=== PATIENT | male | born 1990 | race Caucasian/White ===

== ENCOUNTER 2024-05-22 13:18 | Inpatient (IN) | payer OTHER, SELFPAY ==
[2024-05-22] VITALS (8 sets, daily range): BP systolic 111–129; BP diastolic 63–93; BMI 17.4
[2024-05-22 11:35] LABS: % Basophils 0.2 % (0-2); % Immature Granulocytes 0.2 % (0-0.5); % Lymphocytes 14.5 % (20.5-51.1); % Monocytes 9.7 % (1.7-9.3); % Neutrophils 75.4 % (42.2-75.2); Absolute Lymphocytes 2.1 10^3/uL (1.2-3.4); Absolute Monocytes 1.4 10^3/uL (0.1-0.6); Absolute Neutrophils 11.1 10^3/uL (1.4-6.5); Hematocrit 50.2 % (39.0-52.0); Hemoglobin 16.5 g/dL (13.0-18.0); Mean Corp Hgb Conc. 32.9 g/dL (33.0-37.0); Mean Corpuscular Hgb 28.6 pg (27.0-31.0); Mean Corpuscular Volume 87.2 fL (80.0-94.0); Mean Platelet Volume 10.3 fL (7.4-10.4); Nucleated Red Blood Cells % 0 % (-); Platelet Count 265 10^3/uL (130-400); Red Blood Cell Count 5.76 10^6/uL (4.70-6.10); Red Cell Dist. Width 13.7 % (11.5-14.5); White Blood Cell Count 14.7 10^3/uL (4.8-10.8)
--- NOTE | 2024-05-22 11:47 | ED.GENMED ---
History of Present Illness
<Maria Barragan PA-C - Last Filed: 05/22/24 19:50>
General
Chief Complaint: Withdrawal Symptoms
Source: patient
Exam Limitations: none
Time Seen by Provider: 05/22/24 11:43
Nursing documentation reviewed up to this point in time: agreed with
History of Present Illness
History of Present Illness:
34-year-old male with past medical history of substance use disorder presents to the emergency department today with concerns of black vomit. Patient present in room with [facility] guards he reports that they found patient to have coffee ground like,
black vomit on his cell floor this morning as well as developed that patient appeared lethargic and had altered mental status. Patient repeatedly falls asleep if not being spoken to and he is somewhat limited in his history. He states that he
started feeling sick yesterday evening at around 5 pm. He states that he is also withdrawing from heroin and states that he last used heroin yesterday. He denies chest pain, shortness of breath. He states that he has transient upper abdominal pain.
He denies diarrhea, rectal bleeding, hematochezia, alcohol use disorder, NSAID use.
Review of Systems
<Maria Barragan PA-C - Last Filed: 05/22/24 19:50>
Review of Systems
All Other Systems: ROS reviewed and negative except as documented in HPI and ROS
Phy Exam
<Maria Barragan PA-C - Last Filed: 05/22/24 19:50>
Physical Exam
Physical Exam:
General: Patient is lethargic and minimally responsive
Skin: Warm and dry, no rashes or lesions
Head: Normocephalic, atraumatic
Eyes: Sclera non-icteric. EOMs intact. PERRLA.
Cardiac: Patient tachycardic otherwise regular rhythm, no murmurs
Peripheral Vascular: No lower extremity swelling or edema
Pulm: Normal respiratory effort, no wheezes, rales, or rhonchi
Abdomen: No abdominal tenderness to palpation however patient was guarded
Genitourinary: Heme positive stool
Neuro: CN II-XII intact, no focal neurologic deficits.
Psychiatric: Appropriate mood and affect.
Course
<Maria Barragan PA-C - Last Filed: 05/22/24 19:50>
Orders/Labs/Results
Orders:
Orders
05/22/24 11:14
EKG [Electrocardiogram (*1)] Urgent
Reason for Study: Fatigue / Weakness
EKG- Treatment ONCE
05/22/24 11:20
Type+Screen Urgent
Alcohol Urgent
Complete Blood Count/With Diff Urgent
Comprehensive Metabolic Panel Urgent
Lipase Urgent
05/22/24 11:47
ABO2 Routine
BBK Wristband Number:
Associate notified that ABO2 has been ordered: [id number]
Date: 05/22/24
Time: 11:44
Wheel Inspector ID: [id number]
05/22/24 11:59
Pantoprazole [Protonix IV] 80 mg IV NOW STA
05/22/24 12:55
0.9% Sodium Chloride 1000 ml [Nss] 1,000 ml IV BOLUS
05/22/24 13:05
Admit/Transfer Patient As Directed
Co-Sign Provider:
Level of Care: Inpatient admission
Assign to:: Telemetry
Physician / Group: sabrina
Diagnosis: hematemesis
Reason for Telemetry: Arrhythmia
Date to Stop Telemetry: 05/25/24
Time to Stop Telemetry: 11:00
Reason for Hospitalization: hematemesis
Expected length of stay greater than two midnights?: Yes
ELOS- Estimated Length of Stay in days: 2
I certify the patient meets the requirements for IP care: Yes
05/22/24 13:06
Code Status As Directed
Resuscitation Status: Full Code
PRN Pain Medication Management As Directed
May give lesser potent ordered pain med per pt: Yes
preference::
Protocol:: Medication orders for pain may be administered in a
manner that supports deferring to patient preference
when the pt is:
- Requesting an ordered lesser potent pain medication.
Least to most potent pain medications are defined
as: acetaminophen < NSAID < tramadol < opioids
(morphine, oxycodone, hydromorphone).
- Requesting a lesser dose of the same medication IF
ORDERED.
- Requesting a less intrusive route of administration
if both routes are prescribed by the provider (PO <
IV).
05/22/24 13:11
Urine Drug Abuse Screen Urgent
05/22/24 Dinner
NPO
Allow oral meds: Yes
Allow clear liquids: Sips of Clears
05/22/24 15:28
0.9% Sodium Chloride 1000 ml [Nss] 1,000 ml IV 100 mls/hr
Buprenorphine [Subutex] 8 mg SL PRN PRN
Clonazepam [Klonopin] 0.5 mg PO Q8HPRN PRN
Ondansetron Injectable [Zofran] 4 mg IV Q6HPRN PRN
05/22/24 15:28
Activity As Directed
Activity Level: As Tolerated
Clinical Opioid Withdrawal Scale (COWS) .PRN
Pneumatic Compression Sleeves As Directed
Type: Knee high
Vital Signs As Directed
Frequency: Per unit guidelines
DX Deep Vein Thrombosis Video Routine
05/22/24 18:00
Clonidine [Catapres] 0.1 mg PO Q6
05/22/24 20:00
Pantoprazole [Protonix IV] 40 mg IV BID
05/22/24 22:00
Quetiapine Fumarate [Seroquel] 50 mg PO HS
05/23/24 06:00
Complete Blood Count/With Diff IN AM
Comprehensive Metabolic Panel IN AM
05/23/24 08:00
Buprenorphine [Subutex] 4 mg SL ONCE PRN PRN
Buprenorphine [Subutex] See Dose Instructions SL ONCE ONE
Quetiapine Fumarate [Seroquel] 25 mg PO DAILY
05/24/24 08:00
Buprenorphine [Subutex] See Dose Instructions SL DAILY
05/25/24 11:00
DC Protocol for Telemetry ONCE
Abnormal Lab Results
05/22/24
11:20
WBC 14.7 H 10^3/uL
(4.8-10.8)
MCHC 32.9 L g/dL
(33.0-37.0)
Absolute Neuts (auto) 11.1 H 10^3/uL
(1.4-6.5)
Absolute Monos (auto) 1.4 H 10^3/uL
(0.1-0.6)
Neutrophils % 75.4 H %
(42.2-75.2)
Lymphocytes % 14.5 L %
(20.5-51.1)
Monocytes % 9.7 H %
(1.7-9.3)
Chloride 97 L mmol/L
(98-107)
Carbon Dioxide 33 H mmol/L
(22-30)
BUN 39 H mg/dl
(9-20)
Glucose 118 H mg/dl
(70-99)
05/22/24 11:20
05/22/24 11:20
Vital Signs
Initial and Last Documented VS:
Initial Vital Signs
Temp Pulse Resp BP Pulse Ox
98.5 F 88 20 111/88 98
05/22/24 11:13 05/22/24 11:13 05/22/24 11:13 05/22/24 11:13 05/22/24 11:13
Last Documented Vital Signs
Temp Pulse Resp BP Pulse Ox
97.8 F 89 18 115/80 99
05/22/24 15:40 05/22/24 18:22 05/22/24 18:22 05/22/24 18:22 05/22/24 18:22
<Jayce Edinson Petit, DO - Last Filed: 05/22/24 13:01>
Orders/Labs/Results
Orders:
Orders
05/22/24 11:14
EKG [Electrocardiogram (*1)] Urgent
Reason for Study: Fatigue / Weakness
EKG- Treatment ONCE
05/22/24 11:20
Type+Screen Urgent
Alcohol Urgent
Complete Blood Count/With Diff Urgent
Comprehensive Metabolic Panel Urgent
Lipase Urgent
05/22/24 11:47
ABO2 Routine
BBK Wristband Number:
Associate notified that ABO2 has been ordered: [id number]
Date: 05/22/24
Time: 11:44
Wheel Inspector ID: [id number]
05/22/24 11:59
Pantoprazole [Protonix IV] 80 mg IV NOW STA
05/22/24 12:55
0.9% Sodium Chloride 1000 ml [Nss] 1,000 ml IV BOLUS
05/22/24 13:05
Admit/Transfer Patient As Directed
Co-Sign Provider:
Level of Care: Inpatient admission
Assign to:: Telemetry
Physician / Group: sabrina
Diagnosis: hematemesis
Reason for Telemetry: Arrhythmia
Date to Stop Telemetry: 05/25/24
Time to Stop Telemetry: 11:00
Reason for Hospitalization: hematemesis
Expected length of stay greater than two midnights?: Yes
ELOS- Estimated Length of Stay in days: 2
I certify the patient meets the requirements for IP care: Yes
05/22/24 13:06
Code Status As Directed
Resuscitation Status: Full Code
PRN Pain Medication Management As Directed
May give lesser potent ordered pain med per pt: Yes
preference::
Protocol:: Medication orders for pain may be administered in a
manner that supports deferring to patient preference
when the pt is:
- Requesting an ordered lesser potent pain medication.
Least to most potent pain medications are defined
as: acetaminophen < NSAID < tramadol < opioids
(morphine, oxycodone, hydromorphone).
- Requesting a lesser dose of the same medication IF
ORDERED.
- Requesting a less intrusive route of administration
if both routes are prescribed by the provider (PO <
IV).
05/22/24 13:11
Urine Drug Abuse Screen Urgent
05/22/24 Dinner
NPO
Allow oral meds: Yes
Allow clear liquids: Sips of Clears
05/22/24 15:28
0.9% Sodium Chloride 1000 ml [Nss] 1,000 ml IV 100 mls/hr
Buprenorphine [Subutex] 8 mg SL PRN PRN
Clonazepam [Klonopin] 0.5 mg PO Q8HPRN PRN
Ondansetron Injectable [Zofran] 4 mg IV Q6HPRN PRN
05/22/24 15:28
Activity As Directed
Activity Level: As Tolerated
Clinical Opioid Withdrawal Scale (COWS) .PRN
Pneumatic Compression Sleeves As Directed
Type: Knee high
Vital Signs As Directed
Frequency: Per unit guidelines
DX Deep Vein Thrombosis Video Routine
05/22/24 18:00
Clonidine [Catapres] 0.1 mg PO Q6
05/22/24 20:00
Pantoprazole [Protonix IV] 40 mg IV BID
05/22/24 22:00
Quetiapine Fumarate [Seroquel] 50 mg PO HS
05/23/24 06:00
Complete Blood Count/With Diff IN AM
Comprehensive Metabolic Panel IN AM
05/23/24 08:00
Buprenorphine [Subutex] 4 mg SL ONCE PRN PRN
Buprenorphine [Subutex] See Dose Instructions SL ONCE ONE
Quetiapine Fumarate [Seroquel] 25 mg PO DAILY
05/24/24 08:00
Buprenorphine [Subutex] See Dose Instructions SL DAILY
05/25/24 11:00
DC Protocol for Telemetry ONCE
Abnormal Lab Results
05/22/24
11:20
WBC 14.7 H 10^3/uL
(4.8-10.8)
MCHC 32.9 L g/dL
(33.0-37.0)
Absolute Neuts (auto) 11.1 H 10^3/uL
(1.4-6.5)
Absolute Monos (auto) 1.4 H 10^3/uL
(0.1-0.6)
Neutrophils % 75.4 H %
(42.2-75.2)
Lymphocytes % 14.5 L %
(20.5-51.1)
Monocytes % 9.7 H %
(1.7-9.3)
Chloride 97 L mmol/L
(98-107)
Carbon Dioxide 33 H mmol/L
(22-30)
BUN 39 H mg/dl
(9-20)
Glucose 118 H mg/dl
(70-99)
05/22/24 11:20
05/22/24 11:20
Vital Signs
Initial and Last Documented VS:
Initial Vital Signs
Temp Pulse Resp BP Pulse Ox
98.5 F 88 20 111/88 98
05/22/24 11:13 05/22/24 11:13 05/22/24 11:13 05/22/24 11:13 05/22/24 11:13
Last Documented Vital Signs
Temp Pulse Resp BP Pulse Ox
97.8 F 89 18 115/80 99
05/22/24 15:40 05/22/24 18:22 05/22/24 18:22 05/22/24 18:22 05/22/24 18:22
<Maria Barragan PA-C - Last Filed: 05/22/24 19:50>
MDM/Problems Addressed
Differential Diagnosis Includes:
ddx include upper GI bleed, lower GI bleed, heroin withdrawal, gastoenteritis
MDM/Problems Addressed:
34-year-old male with a past medical history of substance abuse presents to the ER today with coffee ground emesis. No known alcohol use or NSAID use. He was given fluids. Heme positive stool. Concerning for upper GI bleed. Protonix given.
Patient referred for admission.
<Maria Barragan PA-C - Last Filed: 05/22/24 19:50>
*Critical Care Note
Total Time (30-74mins, 75-104mins- exclusive of procedures): Not Applicable
ED Attending Note
<Maria Barragan PA-C - Last Filed: 05/22/24 19:50>
-
Portions of this chart may have been created with voice recognition software.� Occasional wrong word or��sound alike� substitutions may have occurred due to the inherent limitations of voice recognition software.
<Jayce Petit DO - Last Filed: 05/22/24 13:01>
ED Attending Note
Patient seen and examined by attending physician: Yes
I performed the substantive portion of visit, reviewed & personally made and approve the management plan that is documented in note by myself or RENETTA.: Yes
ED Attending Note:
I evaluated the patient at side. The patient appears withdrawn, laying on his side and states that he does not feel well. He reportedly had heme positive stool and had been having black vomitus. His BUN is elevated but otherwise hemodynamically
stable with normal hemoglobin. PPI given.
Discharge Plan
Departure
Patient Disposition: Admit
Date of Disposition: 05/22/24
Time of Disposition: 12:55
Admit to: Med/Surg
Presentation/result/management discussed w/ accepting MD/DO: Hospitalist
Patient with high blood pressure during this ER visit?: No
Condition: Fair
Discharge Problem:
Acute upper GI bleed, Altered mental status
Interventions
Interventions:
*Risk Screen - Suicide Last Done: 05/22/24 11:13
*General Assessment Last Done: 05/22/24 11:13
*Neglect/Abuse Screening Last Done: 05/22/24 11:13
ED- Fall Risk Assessment Last Done: 05/22/24 15:11
*ED COVID-19 Vaccine History Last Done: 05/22/24 11:13
*Nursing Disposition Last Done: 05/22/24 14:54
ED- Neurological Assessment Last Done: 05/22/24 11:28
ED-Psychological Assessment Last Done: 05/22/24 11:31
Discharge Date and Time
Discharge Date/Time: 05/22/24 15:22
[2024-05-22 11:49] LABS: ALT (SGPT) 18 U/L (0-50); AST (SGOT) 26 U/L (17-59); Albumin 4.4 g/dl (3.5-5.0); Alkaline Phosphatase 85 U/L (38-126); Blood Urea Nitrogen 39 mg/dl (9-20); Calcium 9.5 mg/dl (8.4-10.2); Carbon Dioxide 33 mmol/L (22-30); Chloride 97 mmol/L (98-107); Estimated Creatinine Clearance 89 ml/min; Glucose 118 mg/dl (70-99); Lipase 156 U/L (23-300); Potassium 3.8 mmol/L (3.5-5.1); Sodium 139 mmol/L (135-145); Total Bilirubin 0.6 mg/dl (0.2-1.3); Total Protein 7.6 g/dl (6.3-8.2); eGFR > 60.00
[2024-05-22] MEDS: PROTONIX IV 80 MG IV (12:17)
[2024-05-22] MEDS: NSS 1000 IV ×2 (12:57→16:50)
--- NOTE | 2024-05-22 13:11 | HPS.HSE ---
Addendum entered and electronically signed by Stephani Abreu MD 05/22/24 13:14:
NPO for now.
Original Note:
Family Physician
-
Family Physician: Facility [facility]
Chief Complaint
-
hematemesis
History of Present Illness
34-year-old male with drug use disorder presenting with vomiting blood. Patient started throwing up last night and staff noted that he was lethargic and noticed he was covered in coffee-ground emesis. He reportedly came to the present 3 days ago.
He was apparently using 1-2 bundles of heroin per day.
Patient is asleep and is arousable but refusing to provide any history.
Medical History
Past Medical History
Past Medical History: Reports Other
Past Surgical History: Reports None
Social History
Drug: Marijuana, Cocaine and Narcotics
Family History
Family History: Not pertinent
Allergies / Home Medications
Allergies reflects when Allergies were last updated in [facility].
Home Medications with original date entered in [facility]
Allergy/Medication List:
Allergies
Allergy/AdvReac Type Severity Reaction Status Date / Time
No Known Allergies Allergy Unverified 05/22/24 11:39
Home Medications
buprenorphine HCl 2 mg sublingual tablet 2 mg sublingual . DIRECTED 05/22/24
clonazepam 0.5 mg tablet 0.5 mg PO . DIRECTED 05/22/24
clonidine HCl 0.1 mg tablet 0.1 mg PO . DIRECTED 05/22/24
diphenhydramine HCl 25 mg capsule 25 mg PO BID 05/22/24
quetiapine 25 mg tablet 25 mg PO DAILY 05/22/24
quetiapine 50 mg tablet 50 mg PO HS 05/22/24
Review of Systems
-
History Source: Patient
A 12 point ROS was completed and negative except as noted: Yes
Constitutional: Reports No Symptoms
EENT: Reports No Symptoms
Respiratory: Reports No Symptoms
Cardiac: Reports No Symptoms
Abdomen/GI: Reports No Symptoms
: Reports No Symptoms
Musculoskeletal: Reports No Symptoms
Skin: Reports No Symptoms
Neurological: Reports No Symptoms
Endocrine: Reports No Symptoms
Hematologic/Lymphatic: Reports No Symptoms
Psych: Reports No Symptoms
Physical Exam
Vital Signs
Vital Signs
Temp Pulse Resp BP Pulse Ox
98.5 F 90 27 129/93 98
05/22/24 11:13 05/22/24 12:45 05/22/24 12:45 05/22/24 12:00 05/22/24 12:45
Physical Exam
General: Well Developed, Well Nourished and No Apparent Distress
HEENT: NormoCephalic, Moist mucous membranes and Atraumatic
Respiratory: Clear
Cardiac: S1/S2 and Regular Rhythm; No Murmur or Rub
GI: Soft, Non Tender, Non Distended and Normal Bowel Sounds; No Organomegaly
Rectal: Deferred by Provider
Musculoskeletal: No Clubbing, No Cyanosis and No Edema
Skin: No Rash
Neuro: Nonfocal/grossly intact
Laboratory Results
-
05/22/24 11:20
05/22/24 11:20
Laboratory Results
Total Bilirubin 0.6 mg/dl (0.2-1.3) 05/22/24 11:20
AST 26 U/L (17-59) 05/22/24 11:20
ALT 18 U/L (0-50) 05/22/24 11:20
Alkaline Phosphatase 85 U/L (38-126) 05/22/24 11:20
Lipase 156 U/L (23-300) 05/22/24 11:20
Data Reviewed
-
Lab Data: Labs Reviewed by me
Old Records: Reviewed
Impression/Plan
-
IMPRESSION:
PLAN:
# Hematemesis likely Laura-Camilo tear from vomiting from heroin withdrawal
-Hemoglobin of 16.5
-Stools heme positive
-Protonix 40 IV twice daily
-Monitor for further hematemesis or hemoglobin drop
# Opiate use disorder/withdrawal
-UDS was reportedly positive for cocaine, fentanyl, marijuana as per half-way document
-Recheck UDS, alcohol level
-EKG shows sinus rhythm
-IV fluids
-Opiate withdrawal protocol with buprenorphine, clonidine
-As needed clonazepam
Possible psychiatric history
-Resume Seroquel when awake
Full code
DVT prophylaxis�SCDs
Regular diet when awake
[2024-05-22 13:37] LABS: Alcohol None Detected
--- NOTE | 2024-05-22 14:28 | CM ---
CM reviewed medical records. Patient presented from [facility]. Plan to return when medically cleared.
PLAN: [facility]
[2024-05-22] MEDS: CATAPRES 0.1 MG PO ×2 (18:31→23:16)
[2024-05-22] MEDS: SEROQUEL 50 MG PO (21:15)
[2024-05-22] MEDS: PROTONIX IV 40 MG IV (21:17)
[2024-05-22] MEDS: NSS (PRESERVATIVE FREE) 10 ML IV (21:17)
[2024-05-23] VITALS (7 sets, daily range): BP systolic 111–129; BP diastolic 70–85
[2024-05-23] MEDS: KLONOPIN 0.5 MG PO (04:10)
[2024-05-23] MEDS: NSS 1000 IV ×2 (04:21→15:59)
[2024-05-23 04:58] LABS: Amphetamines Negative (Negative); Barbiturates Negative (Negative); Benzodiazepines Negative (Negative); Buprenorphine Negative (Negative); Cocaine Negative (Negative); Marijuana Negative (Negative); Methadone Negative (Negative); Methamphetamines Negative (Negative); Opiates Positive (Negative); Phencyclidine Negative (Negative); Tricyclic Antidepressants Positive (Negative)
[2024-05-23 05:09] LABS: Fentanyl, Urine Positive (Negative)
[2024-05-23] MEDS: CATAPRES 0.1 MG PO ×3 (06:15→18:08)
[2024-05-23 07:20] LABS: % Basophils 0.3 % (0-2); % Eosinophils 0.2 % (0-6); % Immature Granulocytes 0.3 % (0-0.5); % Lymphocytes 25.4 % (20.5-51.1); % Monocytes 9.4 % (1.7-9.3); % Neutrophils 64.4 % (42.2-75.2); Absolute Lymphocytes 2.6 10^3/uL (1.2-3.4); Absolute Neutrophils 6.6 10^3/uL (1.4-6.5); Hematocrit 39.4 % (39.0-52.0); Hemoglobin 13.4 g/dL (13.0-18.0); Mean Corpuscular Hgb 28.8 pg (27.0-31.0); Mean Corpuscular Volume 84.5 fL (80.0-94.0); Nucleated Red Blood Cells % 0 % (-); Platelet Count 205 10^3/uL (130-400); Red Blood Cell Count 4.66 10^6/uL (4.70-6.10); Red Cell Dist. Width 13.2 % (11.5-14.5); White Blood Cell Count 10.2 10^3/uL (4.8-10.8)
[2024-05-23 07:54] LABS: ALT (SGPT) 13 U/L (0-50); AST (SGOT) 23 U/L (17-59); Albumin 3.3 g/dl (3.5-5.0); Alkaline Phosphatase 75 U/L (38-126); Blood Urea Nitrogen 20 mg/dl (9-20); Calcium 8.3 mg/dl (8.4-10.2); Carbon Dioxide 28 mmol/L (22-30); Chloride 104 mmol/L (98-107); Estimated Creatinine Clearance 115 ml/min; Glucose 91 mg/dl (70-99); Potassium 3.8 mmol/L (3.5-5.1); Sodium 138 mmol/L (135-145); Total Bilirubin 0.5 mg/dl (0.2-1.3); Total Protein 5.8 g/dl (6.3-8.2); eGFR > 60.00
[2024-05-23] MEDS: SEROQUEL 25 MG PO (08:32)
[2024-05-23] MEDS: PROTONIX IV 40 MG IV ×2 (08:32→21:08)
[2024-05-23] MEDS: NSS (PRESERVATIVE FREE) 10 ML IV ×2 (08:32→21:08)
--- NOTE | 2024-05-23 11:22 | W.PN.HOSP.TC ---
Today's Communication/Plan
-
IV Protonix
GI Consult
Assessment / Plan
Assessment / Plan
34-year-old male with hx drug use (Heroin) presents from nursing home with vomiting, lethargy, he was covered in coffee-ground emesis.
# Hematemesis
-concern for MWT in setting of vomiting from Heroin withdrawal versus UGIB
-Hemoglobin of 16.5 --> 13.4 this morning
-Protonix 40 IV twice daily
- GI consult
- NPO, IVF; start clears if no plan for EGD today
# Opiate use disorder/withdrawal
-UDS was reportedly positive for cocaine, fentanyl, marijuana as per nursing home document
-Recheck UDS, alcohol level
-EKG shows sinus rhythm
-IV fluids
-Opiate withdrawal protocol with buprenorphine, clonidine
-As needed clonazepam
Possible psychiatric history
-Resume Seroquel when awake
Full code
DVT prophylaxis�SCDs
Regular diet when awake
Anticipated Discharge: 24 - 48 hours
Subjective/Interval History
-
Date of Service: May 23, 2024
no further vomiting
he feels hungry
no BM
Objective Data
-
Labs:
Laboratory Results
05/23/24
06:52
WBC 10.2
Hgb 13.4
Hct 39.4
Plt Count 205 D
Sodium 138
Potassium 3.8
Chloride 104
Carbon Dioxide 28
BUN 20
Creatinine 0.7
Glucose 91
Calcium 8.3 L
Total Bilirubin 0.5
AST 23
ALT 13
Alkaline Phosphatase 75
Vital Signs:
Vital Signs
Temp Pulse Resp BP Pulse Ox
97.4 F 77 16 115/72 98
05/23/24 07:25 05/23/24 07:25 05/23/24 07:25 05/23/24 07:25 05/23/24 07:25
I&O
05/22/24 05/23/24 05/24/24
06:59 06:59 06:59
Intake Total 720 / 720
Output Total 2650 / 2650
Balance -1929 / -1929
Review of Systems
-
History Source: Patient
All other systems: Reviewed and negative
Physical Exam
-
General: Other (disheveled appearing)
HEENT: PERRLA
Respiratory: Clear to Auscultation; Negative Wheezes
Cardiac: Regular Rhythm and S1/S2
GI: Soft and Nontender
Musculoskeletal: No Edema
Skin: Rash
Neuro: AO x 3
Psych: Calm
Data Reviewed
-
Diagnostic Radiology: Report Reviewed by me
Labs: Labs Reviewed by me
[2024-05-23 11:47] LABS: Hemoglobin 14.7 g/dL (13.0-18.0)
[2024-05-23 12:12] LABS: Magnesium 2.2 mg/dl (1.6-2.3); Phosphorus 2.9 mg/dl (2.5-4.5)
[2024-05-23 20:41] LABS: Hemoglobin 12.7 g/dL (13.0-18.0)
[2024-05-23] MEDS: SEROQUEL 50 MG PO (21:08)
[2024-05-24] VITALS (8 sets, daily range): BP systolic 100–117; BP diastolic 52–79
[2024-05-24] MEDS: CATAPRES 0.1 MG PO ×4 (00:10→23:03)
[2024-05-24] MEDS: NSS 1000 IV ×2 (00:12→13:50)
--- NOTE | 2024-05-24 07:31 | CON.GI ---
Addendum entered and electronically signed by Yamini Mahmood MD 05/24/24 08:34:
I saw and examined the patient.
The CORRESPONDENCE SPECIALIST's note was reviewed and I agree with the note.
Comment: This is a 34-year-old male with past medical history of polysubstance abuse with recent use of heroin and cocaine who was in [facility] nursing home the past 2 days was brought into the ER on 05/22 for coffee-ground emesis. His hemoglobin was
16.5 on admission and is 12.7 now but after hydration . His BUN is elevated at 30 on admission and dropped to 20 after hydration. He has not had any further episodes of hematemesis/CG emesis and is hungry and wants to eat. He has not had any
rectal bleeding or melena.
Assessment and plan coffee-ground emesis with recent substance abuse with heroin and cocaine and had nausea vomiting prior most likely has esophagitis/ gastritis or Laura-Camilo tear less likely PUD. Will schedule him for endoscopy today is
currently on Protonix twice daily. He is on opiate withdrawal protocol
Original Note:
Consultation
-
Date/Time Consultation Requested: 05/23/24 1130
Date/Time Consultation Performed: 05/23/24 0730
Requesting Provider: Miranda Duncan MD
Performing Provider: TONI Hoover, Yamini Mahmood MD
Reason for Consultation: coffee ground emesis
Medical History
Chief Complaint / HPI
Chief Complaint: coffee ground emesis
History of Present Illness:
Pt is a 34yo presents with hx possible prior psychiatric issues, admitted polysubstance abuse with recent heroin and cocaine with tox screen + for opioids, tricyclics and Fentanyl admitted to [facility] nursing home about 2 days ago and noted dark
emesis on 05/22. Pt brought to ER for evaluation. On admission note 16.5 with progressive drop to 12.7 after admission with normal BUN.
At this time pt lethargic but awakens to voice. he denies odynophagia, dysphagia, GERD, abdominal pain , diarrhea, constipation, blood or black in stools. No hx EGD or colonoscopy in past. Pt denies NSAID or anticoagulation use.
Past Medical History
Past Medical History: Psychiatric (? prior psych history, polysubstance abuse )
Social History
Tobacco: Smoker (1/2 PPD)
Alcohol: None
Drug: Cocaine and Other (heroin with opioids, tricyclics and Fentanyl )
Personal: Other
Living: [facility] (current prision but lived with friend prior to nursing home )
Employment: Not Employed
Family History
Family History: Other (no family hx colon Ca or polyps)
Allergies / Home Medications
Allergy/AdvReac Type Severity Reaction Status Date / Time
No Known Allergies Allergy Unverified 05/22/24 11:39
�Medication �Instructions �Recorded
buprenorphine HCl 2 mg sublingual 2 mg sublingual . DIRECTED ROM 05/22/24
tablet
clonazepam 0.5 mg tablet 0.5 mg PO . DIRECTED Mental 05/22/24
Health/Anxiety
clonidine HCl 0.1 mg tablet 0.1 mg PO . DIRECTED ROM 05/22/24
diphenhydramine HCl 25 mg capsule 25 mg PO BID ANTIHISTAMINE 05/22/24
quetiapine 25 mg tablet 25 mg PO DAILY Mental 05/22/24
Health/Anxiety
quetiapine 50 mg tablet 50 mg PO HS Mental Health/Anxiety 05/22/24
Review of Systems
-
History Source: Patient
Constitutional: Reports No Symptoms
EENT: Reports No Symptoms
Respiratory: Reports No Symptoms
Cardiac: Reports No Symptoms
Abdomen/GI: Reports Nausea and Vomiting (dark emesis)
: Reports No Symptoms
Musculoskeletal: Reports No Symptoms
Skin: Reports No Symptoms
Neurological: Reports Weakness
Endocrine: Reports No Symptoms
Hematologic/Lymphatic: Reports Bleeding
Vital Signs
Temp Pulse Resp BP Pulse Ox
97.9 F 72 16 114/63 97
05/24/24 03:12 05/24/24 05:22 05/24/24 03:12 05/24/24 05:22 05/24/24 03:12
Physical Exam
Exam
General: Other (lying in fecal position in bed with noted diaporesis )
HEENT: Normocephalic and Anicteric
Respiratory: Clear
Cardiac: Regular Rhythm
GI: Soft, Non Tender and Non Distended
Musculoskeletal: No Clubbing and No Cyanosis
Skin: Warm and Dry
Neuro: Other (sleepy but with stimulation awakens and answering questions appropriately )
Psych: Calm
Results
WBC 10.2 10^3/uL (4.8-10.8) 05/23/24 06:52
Hgb 12.7 g/dL (13.0-18.0) L 05/23/24 20:35
Hct 39.4 % (39.0-52.0) 05/23/24 06:52
MCV 84.5 fL (80.0-94.0) 05/23/24 06:52
Plt Count 205 10^3/uL (130-400) D 05/23/24 06:52
Absolute Neuts (auto) 6.6 10^3/uL (1.4-6.5) H 05/23/24 06:52
Sodium 138 mmol/L (135-145) 05/23/24 06:52
Potassium 3.8 mmol/L (3.5-5.1) 05/23/24 06:52
Chloride 104 mmol/L (98-107) 05/23/24 06:52
Carbon Dioxide 28 mmol/L (22-30) 05/23/24 06:52
BUN 20 mg/dl (9-20) 05/23/24 06:52
Creatinine 0.7 mg/dL (0.7-1.3) 05/23/24 06:52
Calcium 8.3 mg/dl (8.4-10.2) L 05/23/24 06:52
Total Bilirubin 0.5 mg/dl (0.2-1.3) 05/23/24 06:52
AST 23 U/L (17-59) 05/23/24 06:52
ALT 13 U/L (0-50) 05/23/24 06:52
Alkaline Phosphatase 75 U/L (38-126) 05/23/24 06:52
Lipase 156 U/L (23-300) 05/22/24 11:20
Diagnostic Image Results:
no imaging completed
Prior GI Procedures:
EGD: none
Colonoscopy: none
Assessment / Plan
-
Pt is a 34yo presents with hx possible prior psychiatric issues, admitted polysubstance abuse with recent heroin and cocaine with tox screen + for opioids, tricyclics and Fentanyl admitted to [facility] about 2 days ago and noted dark
emesis on 05/22. Pt brought to ER for evaluation. On admission note 16.5 with progressive drop to 12.7 after admission with normal BUN. Denies NSAID or anticoagulation use.
-coffee ground emesis
-progressive drop in hbg after admission
-recent polysubstance abuse with withdrawal
-possible psychiatric illness
-hypoalbuminemia after admission
PLAN:
Etiology of coffee ground related to MW tear, esophagitis, gastritis vs other
plan for EGD today- pt agreeable to proceed
NPO t/c advance diet after EGD completed
trend hbg with some drop since admission but no signs of aggressive bleeding
monitor for withdrawal reviewed with nursing staff has been stable from withdrawal standpoint overnight
-
-
Thank you for consultation and allowing me to participate in the patient's care. Please call the acting section chief GI physician during the after hours with any questions or concerns.
[2024-05-24 08:03] LABS: Hematocrit 36.8 % (39.0-52.0); Hemoglobin 12.5 g/dL (13.0-18.0); Mean Corpuscular Volume 85.4 fL (80.0-94.0); Mean Platelet Volume 10.2 fL (7.4-10.4); Platelet Count 178 10^3/uL (130-400); Red Blood Cell Count 4.31 10^6/uL (4.70-6.10); Red Cell Dist. Width 12.7 % (11.5-14.5); White Blood Cell Count 8.3 10^3/uL (4.8-10.8)
[2024-05-24 08:43] LABS: Blood Urea Nitrogen 12 mg/dl (9-20); Calcium 8.7 mg/dl (8.4-10.2); Carbon Dioxide 26 mmol/L (22-30); Chloride 106 mmol/L (98-107); Estimated Creatinine Clearance 115 ml/min; Glucose 99 mg/dl (70-99); Potassium 3.5 mmol/L (3.5-5.1); Sodium 138 mmol/L (135-145); eGFR > 60.00
[2024-05-24] MEDS: NSS IV ×2 (09:16→22:50)
[2024-05-24] MEDS: SEROQUEL 25 MG PO (09:17)
[2024-05-24] MEDS: PROTONIX IV 40 MG IV ×2 (09:17→19:59)
[2024-05-24] MEDS: NSS (PRESERVATIVE FREE) 10 ML IV ×2 (09:18→19:59)
--- NOTE | 2024-05-24 10:43 | W.PN.UPDATE ---
Update Note
Progress Note Update
Severe esophagitis noted on endoscopy. Continue Protonix twice daily for 4 weeks and then daily added Carafate 4 times daily for 2 weeks. He will need repeat endoscopy in 2 months to check for healing. Reflux precautions.
no further CG emesis, EGD with no active bleeding
Will s/o and will be available as needed
[2024-05-24] MEDS: CATAPRES PO ×2 (12:32→17:16)
[2024-05-24] MEDS: CARAFATE 1 GRAM PO ×3 (13:46→19:59)
--- NOTE | 2024-05-24 13:57 | W.PN.HOSP.TC ---
Today's Communication/Plan
-
ppi bid
sucralfate
adv diet
monitor hgb
anticipate dc demarco
Assessment / Plan
Assessment / Plan
34-year-old male with hx drug use (Heroin) presents from halfway with vomiting, lethargy, he was covered in coffee-ground emesis.
# Hematemesis
-concern for MWT in setting of vomiting from Heroin withdrawal versus UGIB
-Protonix 40 IV twice daily
- GI consult
- NPO
� EGD with LA grade C esophagitis with no bleeding, likely from GERD and worsening with nausea and vomiting, small hiatal hernia
-Continue PPI twice daily
-Sucralfate tablets 1 g p.o. 4 times daily for 2 weeks
-Advance diet and monitor
# Opiate use disorder/withdrawal
-UDS was reportedly positive for cocaine, fentanyl, marijuana as per halfway document
-EKG shows sinus rhythm
-IV fluids
-Opiate withdrawal protocol with buprenorphine, clonidine
-As needed clonazepam
-educated on cessation
Possible psychiatric history
-seroquel at night
Full code
DVT prophylaxis�SCDs
Regular diet when awake
Total time spent on today's encounter was 50 minutes which included time spent in counseling the patient/family regarding diagnosis and treatment plan as listed above, goals of care, and symptom management. Case was discussed with nursing staff,
specialists, and care coordinators/case management. All labs and imaging personally reviewed by me. Remainder the time spent in detailed review of previous records, lab data, imaging, and other medical provider documentation.
Anticipated Discharge: Within 24 hours
Subjective/Interval History
-
Date of Service: May 24, 2024
No acute events overnight
Objective Data
-
Labs:
Laboratory Results
05/24/24
07:56
WBC 8.3
Hgb 12.5 L
Hct 36.8 L
Plt Count 178
Sodium 138
Potassium 3.5
Chloride 106
Carbon Dioxide 26
BUN 12
Creatinine 0.7
Glucose 99
Calcium 8.7
Vital Signs:
Vital Signs
Temp Pulse Resp BP Pulse Ox
98.5 F 51 16 104/53 98
05/24/24 11:37 05/24/24 12:32 05/24/24 11:37 05/24/24 11:37 05/24/24 11:37
I&O
05/23/24 05/24/24 05/25/24
06:59 06:59 06:59
Intake Total 720 / 720 4680 / 4680
Output Total 2650 / 2650 2400 / 2400
Balance -193 / -1929 2279 / 2279
Review of Systems
-
History Source: Patient
All other systems: Not reviewed unless documented
Physical Exam
-
General: Other (disheveled appearing)
HEENT: PERRLA
Respiratory: Clear to Auscultation; Negative Wheezes
Cardiac: Regular Rhythm and S1/S2
GI: Soft and Nontender
Musculoskeletal: No Edema
Skin: Rash
Neuro: AO x 3
Psych: Calm
[2024-05-24] MEDS: SEROQUEL 50 MG PO (19:59)
[2024-05-24] MEDS: KLONOPIN 0.5 MG PO (23:03)
[2024-05-25 03:57] VITALS: BP 98/58
[2024-05-25] MEDS: CATAPRES PO ×2 (05:29→11:35)
[2024-05-25 07:21] LABS: Hematocrit 36.9 % (39.0-52.0); Hemoglobin 12.7 g/dL (13.0-18.0); Mean Corp Hgb Conc. 34.4 g/dL (33.0-37.0); Mean Corpuscular Hgb 28.5 pg (27.0-31.0); Mean Corpuscular Volume 82.9 fL (80.0-94.0); Mean Platelet Volume 10.4 fL (7.4-10.4); Platelet Count 208 10^3/uL (130-400); Red Blood Cell Count 4.45 10^6/uL (4.70-6.10); Red Cell Dist. Width 12.7 % (11.5-14.5); White Blood Cell Count 9.9 10^3/uL (4.8-10.8)
[2024-05-25 07:25] VITALS: BP 109/58
[2024-05-25] MEDS: PROTONIX 40 MG PO (07:47)
[2024-05-25] MEDS: SEROQUEL 25 MG PO (07:47)
[2024-05-25] MEDS: KLONOPIN 0.5 MG PO (07:47)
[2024-05-25] MEDS: CARAFATE 1 GRAM PO ×2 (07:47→12:05)
--- NOTE | 2024-05-25 08:45 | PN.CDI ---
CDI
- -
CDI:
Physician Documentation Request
Admit Date: 05/22/24 13:18
Dear Doctor Anitha,
Patient admitted for hematemesis.
05/24 Hospitalist PN: 'he was covered in coffee-ground emesis...Hematemesis -concern for MWT in setting of vomiting from Heroin withdrawal versus UGIB'
05/24 GI PN: 'trend hbg with some drop since admission but no signs of aggressive bleeding'
Laboratory Tests
05/22/24 05/23/24 05/24/24
11:20 11:40 07:56
Hgb 16.5 14.7 12.5 L
Hct 50.2 36.8 L
Based on the above, could you clarify in the progress notes, the appropriate diagnosis, if significant, that supports the above abnormalities and additional evaluation, monitoring and/or treatment rendered:
Acute anemia multifactorial blood loss and hemodilution
Acute blood loss anemia
Hemodilution
Other
Use of terms such as suspected, likely, concern for, or probable (associated with a specific diagnosis that is being evaluated, monitored, or treated as if it exists) are acceptable and can be coded in the inpatient setting, when documented at the
time of discharge.
Thank you,
Roxanna Mitchell RN, BSN
CDI Specialist
Available via [employer] text
Please use your independent medical judgment in providing your response.
--- NOTE | 2024-05-25 11:17 | CM ---
CM reviewed chart, reviewed with Hospitalist, plan for discharge today, [facility]. Guards present in room. CM will continue to follow for all discharge planning needs.
Plan; return [facility]
Report: [phone]
[2024-05-25 11:43] VITALS: BP 99/59
[2024-05-25] MEDS: SUBUTEX 4 MG SL (12:05)
--- NOTE | 2024-05-25 12:25 | W.PN.HOSP.TC ---
Addendum entered and electronically signed by Grayson Welsh MD 05/25/24 17:21:
Acute anemia multifactorial blood loss and hemodilution
Addendum entered and electronically signed by Grayson Welsh MD 05/25/24 17:11:
[id number]
Original Note:
Today's Communication/Plan
-
-tolerated to LRD - continue
-Use Protonix (pantoprazole) 40 mg PO BID.
- Use sucralfate tablets 1 gram PO QID for 2 weeks.
- Repeat upper endoscopy in 2 months to check healing.
-f/u cbc in 3-5 days
f/u pcp, gi outpt
Assessment / Plan
Assessment / Plan
34-year-old male with hx drug use (Heroin) presents from intermediate with vomiting, lethargy, he was covered in coffee-ground emesis.
# Hematemesis
-EGD 05/24: LA Grade C esophagitis with no bleeding, likely from GERD and worsened with recent N/V.
-tolerated to LRD - continue
-Use Protonix (pantoprazole) 40 mg PO BID.
- Use sucralfate tablets 1 gram PO QID for 2 weeks.
- Repeat upper endoscopy in 2 months to check healing.
-f/u cbc in 3-5 days
# Opiate use disorder/withdrawal
-UDS was reportedly positive for cocaine, fentanyl, marijuana as per intermediate document
-EKG shows sinus rhythm
-IV fluids
-Opiate withdrawal protocol with buprenorphine, clonidine
-As needed clonazepam
-educated on cessation
Possible psychiatric history
-seroquel at night
Full code
DVT prophylaxis�SCDs
Regular diet when awake
More than 30 minutes spent in discharge including
Final examination of the patient
Summarizing hospital stay
Instructions for continuing care to all relevant caregivers
Preparation of discharge records, prescriptions, and referral forms
Total time spent (36 in minutes):
Anticipated Discharge: Today
Subjective/Interval History
-
Date of Service: May 25, 2024
tolerated lrd, no episodes of coffee ground emesis
Objective Data
-
Labs:
Laboratory Results
05/25/24
06:31
WBC 9.9
Hgb 12.7 L
Hct 36.9 L
Plt Count 208
Vital Signs:
Vital Signs
Temp Pulse Resp BP Pulse Ox
97.8 F 72 24 99/59 100
05/25/24 11:43 05/25/24 11:43 05/25/24 11:43 05/25/24 11:43 05/25/24 11:43
I&O
05/24/24 05/25/24 05/26/24
06:59 06:59 06:59
Intake Total 4680 / 4680 3400 / 3400
Output Total 2400 / 2400 3400 / 3400
Balance 2280 / 2280 0 / 0
Review of Systems
-
History Source: Patient
All other systems: Not reviewed unless documented
Physical Exam
-
General: Other (disheveled appearing)
HEENT: PERRLA
Respiratory: Clear to Auscultation; Negative Wheezes
Cardiac: Regular Rhythm and S1/S2
GI: Soft and Nontender
Musculoskeletal: No Edema
Skin: Rash
Neuro: AO x 3
Psych: Calm
Data Reviewed
-
Diagnostic Radiology: Report Reviewed by me
Labs: Labs Reviewed by me
--- NOTE | 2024-05-25 12:35 | W.DS.TRANS ---
DC Summary - [employer]
-
Discharge Instructions:
Discharge Diagnosis/Procedures Coffee-ground emesis, Nausea with vomiting
Diet Low Residue
Blood Work cbc in 1 week with pcp
Others Tests Repeat upper endoscopy in 2 months to check
healing.
Instructions:
Stand-Alone Forms:
Changes to Home Medications: Yes
Discharge Medications:
DC Medications w/original date entered in [employer]
buprenorphine HCl 2 mg sublingual tablet 2 mg sublingual . DIRECTED ROM 05/22/24
clonazepam 0.5 mg tablet 0.5 mg PO . DIRECTED Mental Health/Anxiety 05/22/24
clonidine HCl 0.1 mg tablet 0.1 mg PO . DIRECTED ROM 05/22/24
quetiapine 25 mg tablet 25 mg PO DAILY Mental Health/Anxiety 05/22/24
quetiapine 50 mg tablet 50 mg PO HS Mental Health/Anxiety 05/22/24
pantoprazole 40 mg tablet,delayed release 40 mg PO BID 30 days #60 tabs 05/25/24
sucralfate 1 gram tablet 1 g PO ACHS 14 days #56 tabs 05/25/24
Home Medication Changes
pantoprazole 40 mg tablet,delayed release 40 mg PO BID 30 days #60 tabs 05/25/24
sucralfate 1 gram tablet 1 g PO ACHS 14 days #56 tabs 05/25/24 - 2 weeks
Pending Results: No
== END 2024-05-25 16:52 | DRG 369 ==
LOC: 4 WEST ACU 13:18
PROVIDERS: Nurse Practitioner Adult Health; Student in an Organized Health Care Education/Training Program; ADMITTING PHYSICIAN Hospitalist; ATTENDING PHYSICIAN Internal Medicine; CONSULT PHYSICIAN Internal Medicine Gastroenterology; EMERGENCY PHYSICIAN Emergency Medicine
PROC: 0DJ08ZZ Inspection of Upper Intestinal Tract, Via Natural or Artificial Opening Endoscopic (ICD-10-PCS; 2024-05-24)
DX: K21.01 Gastro-esophageal reflux disease with esophagitis, with bleeding (principal); D62 Acute posthemorrhagic anemia; F11.13 Opioid abuse with withdrawal; F17.210 Nicotine dependence, cigarettes, uncomplicated; E88.09 Other disorders of plasma-protein metabolism, not elsewhere classified; F41.9 Anxiety disorder, unspecified; K44.9 Diaphragmatic hernia without obstruction or gangrene
CPT/HCPCS: 80048; 80053; 80306; 80307; 82077; 83690; 83735; 84100; 85018; 85025; 85027; 86850; 86900; 86901; 87070; 93005; 96374; 99285

== ENCOUNTER 2024-08-09 06:20 | Day surgery (SDC) | payer OTHER, SELFPAY | END 2024-08-09 15:43 | disposition home or self-care (01) | LOC: GI 06:20 | PROVIDERS: ATTENDING PHYSICIAN Internal Medicine Gastroenterology | DX: R12 Heartburn (principal); K21.00 Gastro-esophageal reflux disease with esophagitis, without bleeding | CPT/HCPCS: 43235 ==